=== PATIENT | female | born 1990 | race Caucasian/White ===

== ENCOUNTER 2019-02-28 15:16 | Emergency (ER) | payer MEDICAID, OTHER ==
[~2019-02-28] VITALS: Ht 167.6 cm; Wt 86.0 kg
[2019-02-28 16:16] LABS: BASOPHILS % 0.5 % (0.0-2.0); EOSINOPHILS % 0.9 % (0.0-5.0); HEMATOCRIT. 38.9 % (36.0-48.0); HEMOGLOBIN. 13.6 g/dL (12.0-16.0); LYMPHOCYTES % 17.5 % (20.0-50.0); MEAN CORPUSCULAR HEMOGLOBIN 32.6 pg (28.0-32.0); MEAN CORPUSCULAR VOLUME 93.4 fL (81.0-99.0); MEAN PLATELET VOLUME 10.2 fl (7.4-10.4); MONOCYTES % 6.5 % (2.0-8.0); NEUTROPHILS % 74.6 % (40.0-76.0); PLATELET 222 x1000/uL (130-400); RED BLOOD CELL COUNT 4.17 mill/uL (4.2-5.4); RED CELL DISTRIBUTION WIDTH 13.5 % (11.6-14.6)
[2019-02-28 16:18] LABS: CHLORIDE 103 mEq/L (98-107)
[2019-02-28 16:41] LABS: B-HCG QUANTITATIVE 39064 mIU/mL (<3)
[2019-02-28 18:01] VITALS: BP 104/56
== END 2019-02-28 18:07 | disposition home or self-care (01) ==
LOC: ER 15:16
DX: O20.0 Threatened abortion (principal); Z3A.08 8 weeks gestation of pregnancy; R10.30 Lower abdominal pain, unspecified; Z98.890 Other specified postprocedural states; Z88.1 Allergy status to other antibiotic agents
CPT/HCPCS: 36415; 76801; 84702; 86850; 86900; 99284